=== PATIENT | male | born 1980 | race African-American/Black ===

== ENCOUNTER 2020-04-02 15:05 | Inpatient (IN) | payer OTHER ==
[2020-04-02] MEDS ORDERED: chlordiazePOXIDE HCL 25 MG CAPSULE PO SCH (23:00)
[2020-04-02] MEDS ORDERED: BISMUTH SUBSALICYLATE 524 MG/30 ML UD PO PRN (23:14)
[2020-04-02] MEDS ORDERED: MAGNESIUM CITRATE 300 ML BOTTLE PO PRN (23:14)
[2020-04-02] MEDS ORDERED: chlordiazePOXIDE HCL 25 MG CAPSULE PO PRN (23:14)
[2020-04-02] MEDS ORDERED: NICOTINE POLACRILEX 2 MG GUM BUC PRN (23:14)
[2020-04-02] MEDS ORDERED: MAGNESIUM HYDROX 2400MG/30ML ORAL SUSPENSION 30 ML CUP PO PRN (23:14)
[2020-04-02] MEDS ORDERED: METHOCARBAMOL 500 MG TABLET PO PRN (23:14)
[2020-04-02] MEDS ORDERED: MENTHOL/PHENOL 1 EACH UD MM PRN (23:14)
[2020-04-02] MEDS ORDERED: ACETAMINOPHEN 325 MG TABLET (FP) PO PRN (23:14)
[2020-04-02] MEDS ORDERED: MAG HYDROX/AL HYDROX/SIMETH 30 ML UNIT-DOSE CUP PO PRN (23:14)
[2020-04-02] MEDS ORDERED: IBUPROFEN 400 MG TABLET (FP) PO PRN (23:14)
[2020-04-02] MEDS ORDERED: cloNIDine HCL 0.1 MG TABLET PO PRN (23:19)
[2020-04-02] MEDS ORDERED: METHADONE HCL 10 MG TABLET (FOR DETOX USE ONLY) PO ONE (23:19)
[2020-04-03 00:01] VITALS: BMI 31.6
[2020-04-03] MEDS ORDERED: METHADONE HCL 10 MG TABLET (FOR DETOX USE ONLY) ONE ×2 (01:08→10:13)
[2020-04-03] MEDS ORDERED: ACETAMINOPHEN 325 MG TABLET (FP) ONE (01:09)
[2020-04-03] MEDS: ACETAMINOPHEN 325 MG TABLET (FP) PO PRN (01:12)
[2020-04-03] MEDS ORDERED: METHADONE (DETOX) 20 MG, METHADONE (DETOX) 5 MG PO ONE (10:00)
[2020-04-03] MEDS ORDERED: PATIENT'S OWN MEDICATION (NON-FORMULARY) (Lisinopril [Prinivil -] 40 MG Tablet) PO SCH (10:00)
[2020-04-03] MEDS ORDERED: METHADONE HCL 5 MG TABLET (FOR DETOX USE ONLY) ONE (10:14)
[2020-04-03] MEDS: NICOTINE POLACRILEX 2 MG GUM BUC PRN ×3 (10:25→16:41)
[2020-04-03] MEDS ORDERED: NICOTINE 21 MG/24 HOURS TOPICAL PATCH ONE (10:29)
[2020-04-03] MEDS: NICOTINE 21 MG/24 HOURS TOPICAL PATCH TD SCH (10:30)
[2020-04-03] MEDS: PRENATAL VITAMINS W/ FOLIC ACID TABLET (FP) PO SCH (10:56)
[2020-04-03 11:25] LABS: HEMATOCRIT 39.9 % (35.4-49); HEMOGLOBIN 13.7 GM/dL (11.7-16.9); MCH 31.1 pg (25.7-33.7); MCHC 34.2 g/dl (32.0-35.9); MEAN PLT VOLUME 8.8 fl (7.5-11.1); PLATELET COUNT 167 K/MM3 (134-434); RBC 4.39 M/mm3 (4.00-5.60); RDW 13.4 % (11.9-15.9); WHITE BLOOD COUNT 4.1 K/mm3 (4.0-10.0)
[2020-04-03 11:54] LABS: POTASSIUM 4.6 mmol/L (3.5-5.1)
[2020-04-03 12:00] LABS: ALBUMIN 3.7 g/dl (3.4-5.0); BLOOD UREA NITROGEN 19.4 mg/dL (7-18); CALCIUM 8.4 mg/dL (8.5-10.1)
[2020-04-03 12:03] LABS: CREATININE 0.9 mg/dL (0.55-1.3)
[2020-04-03 12:04] LABS: BILIRUBIN,TOTAL 0.6 mg/dL (0.2-1); TOT PROT 6.8 g/dl (6.4-8.2)
[2020-04-03] MEDS: amLODIPine BESYLATE 10 MG TABLET (FP) PO SCH (12:31)
[2020-04-03] MEDS: ONDANSETRON *ODT* 4 MG TABLET SL PRN (12:31)
[2020-04-03] MEDS ORDERED: LISINOPRIL 5 MG TABLET PO SCH (12:37)
[2020-04-03] MEDS: LISINOPRIL 5 MG TABLET PO SCH (12:50)
[2020-04-03] MEDS: metFORMIN HCL 500 MG TABLET (FP) PO SCH (17:09)
[2020-04-03] MEDS ORDERED: amLODIPine BESYLATE 5 MG TABLET (FP) PO SCH (22:00)
[2020-04-03] MEDS: MELATONIN 5 MG TABLETS PO SCH (22:54)
[2020-04-03] MEDS: THIAMINE HCL 100 MG TABLET (FP) PO SCH (22:55)
[2020-04-04] MEDS: NICOTINE POLACRILEX 2 MG GUM BUC PRN ×6 (01:47→22:22)
[2020-04-04] MEDS ORDERED: chlordiazePOXIDE HCL 25 MG CAPSULE PO SCH (05:00)
[2020-04-04] MEDS: metFORMIN HCL 500 MG TABLET (FP) PO SCH ×2 (06:23→17:07)
[2020-04-04] MEDS ORDERED: METHADONE HCL 10 MG TABLET (FOR DETOX USE ONLY) PO ONE (10:00)
[2020-04-04] MEDS: amLODIPine BESYLATE 10 MG TABLET (FP) PO SCH (10:47)
[2020-04-04] MEDS: NICOTINE 21 MG/24 HOURS TOPICAL PATCH TD SCH (10:47)
[2020-04-04] MEDS: PRENATAL VITAMINS W/ FOLIC ACID TABLET (FP) PO SCH (10:47)
[2020-04-04] MEDS: LISINOPRIL 5 MG TABLET PO SCH (10:47)
[2020-04-04] MEDS: THIAMINE HCL 100 MG TABLET (FP) PO SCH (21:19)
[2020-04-04] MEDS: MELATONIN 5 MG TABLETS PO SCH (21:19)
[2020-04-05] MEDS ORDERED: chlordiazePOXIDE HCL 10 MG CAPSULE PO PRN
[2020-04-05] MEDS ORDERED: chlordiazePOXIDE HCL 10 MG CAPSULE PO SCH (05:00)
[2020-04-05] MEDS: metFORMIN HCL 500 MG TABLET (FP) PO SCH ×2 (06:13→17:19)
[2020-04-05] MEDS ORDERED: METHADONE HCL 10 MG TABLET (FOR DETOX USE ONLY) ONE (09:24)
[2020-04-05] MEDS ORDERED: METHADONE HCL 5 MG TABLET (FOR DETOX USE ONLY) ONE (09:25)
[2020-04-05] MEDS: NICOTINE POLACRILEX 2 MG GUM BUC PRN ×3 (09:51→20:08)
[2020-04-05] MEDS: ONDANSETRON *ODT* 4 MG TABLET SL PRN (09:51)
[2020-04-05] MEDS ORDERED: METHADONE (DETOX) 10 MG, METHADONE (DETOX) 5 MG PO ONE (10:00)
[2020-04-05] MEDS: PRENATAL VITAMINS W/ FOLIC ACID TABLET (FP) PO SCH (10:08)
[2020-04-05] MEDS: amLODIPine BESYLATE 10 MG TABLET (FP) PO SCH (10:08)
[2020-04-05] MEDS: LISINOPRIL 5 MG TABLET PO SCH (10:08)
[2020-04-05] MEDS: NICOTINE 21 MG/24 HOURS TOPICAL PATCH TD SCH (10:09)
[2020-04-05] MEDS: ACETAMINOPHEN 325 MG TABLET (FP) PO PRN (14:21)
[2020-04-05] MEDS: MELATONIN 5 MG TABLETS PO SCH (22:57)
[2020-04-05] MEDS: THIAMINE HCL 100 MG TABLET (FP) PO SCH (22:58)
[2020-04-06] MEDS: NICOTINE POLACRILEX 2 MG GUM BUC PRN ×6 (00:16→20:32)
[2020-04-06] MEDS ORDERED: chlordiazePOXIDE HCL 10 MG CAPSULE PO SCH (05:00)
[2020-04-06] MEDS: metFORMIN HCL 500 MG TABLET (FP) PO SCH ×2 (08:19→18:01)
[2020-04-06] MEDS: PRENATAL VITAMINS W/ FOLIC ACID TABLET (FP) PO SCH (09:54)
[2020-04-06] MEDS: LISINOPRIL 5 MG TABLET PO SCH (09:54)
[2020-04-06] MEDS: NICOTINE 21 MG/24 HOURS TOPICAL PATCH TD SCH (09:55)
[2020-04-06] MEDS ORDERED: METHADONE HCL 10 MG TABLET (FOR DETOX USE ONLY) PO ONE (10:00)
[2020-04-06] MEDS: amLODIPine BESYLATE 10 MG TABLET (FP) PO SCH (12:17)
[2020-04-06] MEDS: THIAMINE HCL 100 MG TABLET (FP) PO SCH (23:11)
[2020-04-06] MEDS: MELATONIN 5 MG TABLETS PO SCH (23:11)
[2020-04-07] MEDS ORDERED: chlordiazePOXIDE HCL 10 MG CAPSULE PO ONE (05:00)
[2020-04-07] MEDS ORDERED: METHADONE HCL 5 MG TABLET (FOR DETOX USE ONLY) PO ONE (06:00)
[2020-04-07] MEDS: metFORMIN HCL 500 MG TABLET (FP) PO SCH (06:14)
[2020-04-07] MEDS: NICOTINE POLACRILEX 2 MG GUM BUC PRN (06:24)
[2020-04-07 07:18] VITALS: BP 124/76; PULSE 56; TEMP 97.3
[2020-04-07] MEDS: NICOTINE 21 MG/24 HOURS TOPICAL PATCH TD SCH (10:46)
[2020-04-07] MEDS: PRENATAL VITAMINS W/ FOLIC ACID TABLET (FP) PO SCH (10:46)
[2020-04-07] MEDS: amLODIPine BESYLATE 10 MG TABLET (FP) PO SCH (10:46)
[2020-04-07] MEDS: LISINOPRIL 5 MG TABLET PO SCH (10:46)
== END 2020-04-07 10:38 | disposition other institution (70) | DRG 773 ==
LOC: YASAS 15:05 → Y3N 04-03 11:48
PROVIDERS: ADMIT Allergy & Immunology; ATTEND Allergy & Immunology
PROC: HZ2ZZZZ Detoxification Services for Substance Abuse Treatment (ICD-10-PCS; principal; 2020-04-03)
DX: F11.23 Opioid dependence with withdrawal (principal); F10.20 Alcohol dependence, uncomplicated; F14.20 Cocaine dependence, uncomplicated; F17.210 Nicotine dependence, cigarettes, uncomplicated; F20.9 Schizophrenia, unspecified; F41.9 Anxiety disorder, unspecified; F32.9 Major depressive disorder, single episode, unspecified; I10 Essential (primary) hypertension; E11.65 Type 2 diabetes mellitus with hyperglycemia; Z79.84 Long term (current) use of oral hypoglycemic drugs; R79.89 Other specified abnormal findings of blood chemistry; Z88.0 Allergy status to penicillin; Z59.0 Homelessness
CPT/HCPCS: 36415; 80053; 82962; 85027; 86780; 93005; 93010; C9803; Q0162; U0003

== ENCOUNTER 2020-06-10 18:31 | Inpatient (IN) | payer OTHER ==
[2020-06-10 19:58] VITALS: BMI 32.3
[2020-06-10] MEDS ORDERED: MAG HYDROX/AL HYDROX/SIMETH 30 ML UNIT-DOSE CUP PO PRN (20:13)
[2020-06-10] MEDS ORDERED: BISMUTH SUBSALICYLATE 524 MG/30 ML UD PO PRN (20:13)
[2020-06-10] MEDS ORDERED: ONDANSETRON *ODT* 4 MG TABLET SL PRN (20:13)
[2020-06-10] MEDS ORDERED: ACETAMINOPHEN 325 MG TABLET (FP) PO PRN (20:13)
[2020-06-10] MEDS ORDERED: MAGNESIUM HYDROX 2400MG/30ML ORAL SUSPENSION 30 ML CUP PO PRN (20:13)
[2020-06-10] MEDS ORDERED: IBUPROFEN 400 MG TABLET (FP) PO PRN (20:13)
[2020-06-10] MEDS ORDERED: MENTHOL/PHENOL 1 EACH UD MM PRN (20:13)
[2020-06-10] MEDS ORDERED: MAGNESIUM CITRATE 300 ML BOTTLE PO PRN (20:13)
[2020-06-11] MEDS: THIAMINE HCL 100 MG TABLET (FP) PO SCH ×2 (01:22→22:43)
[2020-06-11] MEDS: MELATONIN 5 MG TABLETS PO SCH ×2 (01:22→22:43)
[2020-06-11] MEDS: diazePAM 5 MG TABLET PO SCH ×5 (01:23→22:44)
[2020-06-11] MEDS ORDERED: diazePAM 5 MG TABLET ONE (04:44)
[2020-06-11] MEDS: metFORMIN HCL 500 MG TABLET (FP) PO SCH ×2 (08:18→17:59)
[2020-06-11] MEDS ORDERED: LISINOPRIL 5 MG TABLET PO SCH (10:00)
[2020-06-11 10:20] LABS: HEMATOCRIT 38.1 % (35.4-49); HEMOGLOBIN 13.3 GM/dL (11.7-16.9); MCHC 34.8 g/dl (32.0-35.9); MEAN CELL VOLUME 89.1 fl (80-96); MEAN PLT VOLUME 8.7 fl (7.5-11.1); PLATELET COUNT 184 K/MM3 (134-434); RBC 4.28 M/mm3 (4.00-5.60); RDW 13.4 % (11.9-15.9); WHITE BLOOD COUNT 3.5 K/mm3 (4.0-10.0)
[2020-06-11 10:32] LABS: ALBUMIN 3.4 g/dl (3.4-5.0); CALCIUM 8.7 mg/dL (8.5-10.1)
[2020-06-11 10:33] LABS: BLOOD UREA NITROGEN 15.6 mg/dL (7-18)
[2020-06-11 10:36] LABS: CREATININE 0.9 mg/dL (0.55-1.3)
[2020-06-11 10:37] LABS: BILIRUBIN,TOTAL 0.7 mg/dL (0.2-1); TOT PROT 6.5 g/dl (6.4-8.2)
[2020-06-11] MEDS: LISINOPRIL 5 MG TABLET PO SCH (11:37)
[2020-06-11] MEDS: amLODIPine BESYLATE 5 MG TABLET (FP) PO SCH (11:37)
[2020-06-11] MEDS: NICOTINE POLACRILEX 4 MG GUM BUC PRN ×4 (11:40→20:47)
[2020-06-11] MEDS: PRENATAL VITAMINS W/ FOLIC ACID TABLET (FP) PO SCH (11:40)
[2020-06-11] MEDS: ASPIRIN COATED 81 MG TABLET.EC PO SCH (13:48)
[2020-06-11] MEDS: PANTOPRAZOLE 20 MG TABLET PO SCH (13:48)
[2020-06-11 22:19] LABS: URINE APPEARANCE CLEAR; URINE BILIRUBIN NEGATIVE (NEGATIVE); URINE COLOR YELLOW; URINE GLUCOSE (UA) 2+ (NEGATIVE); URINE KETONE TRACE (NEGATIVE); URINE LEUK ESTERASE NEGATIVE (NEGATIVE); URINE NITRITE NEGATIVE (NEGATIVE); URINE PROTEIN NEGATIVE (NEGATIVE)
[2020-06-12] MEDS: diazePAM 5 MG TABLET PO SCH ×3 (06:14→23:24)
[2020-06-12] MEDS: metFORMIN HCL 500 MG TABLET (FP) PO SCH ×2 (06:16→16:47)
[2020-06-12] MEDS: NICOTINE POLACRILEX 4 MG GUM BUC PRN ×4 (08:52→21:27)
[2020-06-12] MEDS: PANTOPRAZOLE 20 MG TABLET PO SCH (10:38)
[2020-06-12] MEDS: ASPIRIN COATED 81 MG TABLET.EC PO SCH (10:38)
[2020-06-12] MEDS: hydrOXYzine PAMOATE 25 MG CAPSULE (FP) PO PRN ×2 (10:38→17:54)
[2020-06-12] MEDS: amLODIPine BESYLATE 5 MG TABLET (FP) PO SCH (10:38)
[2020-06-12] MEDS: LISINOPRIL 5 MG TABLET PO SCH (10:38)
[2020-06-12] MEDS: ACETAMINOPHEN 325 MG TABLET (FP) PO PRN (10:39)
[2020-06-12] MEDS: METHOCARBAMOL 500 MG TABLET PO PRN (10:39)
[2020-06-12] MEDS: PRENATAL VITAMINS W/ FOLIC ACID TABLET (FP) PO SCH (10:39)
[2020-06-12] MEDS: ARIPiprazole 2 MG TABLET PO SCH (10:39)
[2020-06-12] MEDS: diazePAM 5 MG TABLET PO PRN ×2 (10:40→17:55)
[2020-06-12] MEDS: MELATONIN 5 MG TABLETS PO SCH (23:23)
[2020-06-12] MEDS: THIAMINE HCL 100 MG TABLET (FP) PO SCH (23:24)
[2020-06-13] MEDS: diazePAM 5 MG TABLET PO SCH ×2 (05:45→17:05)
[2020-06-13] MEDS: METHOCARBAMOL 500 MG TABLET PO PRN ×2 (05:48→22:40)
[2020-06-13] MEDS: NICOTINE POLACRILEX 4 MG GUM BUC PRN ×5 (05:50→21:03)
[2020-06-13] MEDS: metFORMIN HCL 500 MG TABLET (FP) PO SCH ×2 (07:48→17:01)
[2020-06-13] MEDS: LISINOPRIL 5 MG TABLET PO SCH (10:08)
[2020-06-13] MEDS: PANTOPRAZOLE 20 MG TABLET PO SCH (10:08)
[2020-06-13] MEDS: ASPIRIN COATED 81 MG TABLET.EC PO SCH (10:08)
[2020-06-13] MEDS: ARIPiprazole 2 MG TABLET PO SCH (10:08)
[2020-06-13] MEDS: amLODIPine BESYLATE 5 MG TABLET (FP) PO SCH (10:08)
[2020-06-13] MEDS: diazePAM 5 MG TABLET PO PRN (10:09)
[2020-06-13] MEDS ORDERED: COLLOIDAL OATMEAL 1 BAR EACH TP PRN (10:39)
[2020-06-13] MEDS: PRENATAL VITAMINS W/ FOLIC ACID TABLET (FP) PO SCH (11:52)
[2020-06-13 14:11] LABS: SARS-CoV-2 NAA Not Detected (Not Detected)
[2020-06-13] MEDS: NICOTINE 21 MG/24 HOURS TOPICAL PATCH TD SCH (14:59)
[2020-06-13] MEDS: ACETAMINOPHEN 325 MG TABLET (FP) PO PRN (15:29)
[2020-06-13] MEDS: THIAMINE HCL 100 MG TABLET (FP) PO SCH (22:39)
[2020-06-13] MEDS: MELATONIN 5 MG TABLETS PO SCH (22:39)
[2020-06-13] MEDS: hydrOXYzine PAMOATE 25 MG CAPSULE (FP) PO PRN (22:40)
[2020-06-14] MEDS ORDERED: diazePAM 5 MG TABLET PO ONE (06:00)
[2020-06-14] MEDS ORDERED: diazePAM 5 MG TABLET PO SCH (06:00)
[2020-06-14] MEDS: metFORMIN HCL 500 MG TABLET (FP) PO SCH ×2 (06:33→17:01)
[2020-06-14] MEDS: diazePAM 5 MG TABLET PO SCH ×2 (06:33→17:51)
[2020-06-14] MEDS: PRENATAL VITAMINS W/ FOLIC ACID TABLET (FP) PO SCH (10:28)
[2020-06-14] MEDS: NICOTINE 21 MG/24 HOURS TOPICAL PATCH TD SCH (10:28)
[2020-06-14] MEDS: LISINOPRIL 5 MG TABLET PO SCH (10:28)
[2020-06-14] MEDS: ASPIRIN COATED 81 MG TABLET.EC PO SCH (10:28)
[2020-06-14] MEDS: PANTOPRAZOLE 20 MG TABLET PO SCH (10:28)
[2020-06-14] MEDS: amLODIPine BESYLATE 10 MG TABLET (FP) PO SCH (10:28)
[2020-06-14] MEDS: ARIPiprazole 2 MG TABLET PO SCH (10:30)
[2020-06-14] MEDS: NICOTINE POLACRILEX 4 MG GUM BUC PRN ×2 (10:32→15:43)
[2020-06-14] MEDS: METHOCARBAMOL 500 MG TABLET PO PRN (17:52)
[2020-06-14] MEDS: MELATONIN 5 MG TABLETS PO SCH (22:18)
[2020-06-14] MEDS: THIAMINE HCL 100 MG TABLET (FP) PO SCH (22:18)
[2020-06-14] MEDS: ACETAMINOPHEN 325 MG TABLET (FP) PO PRN (22:19)
[2020-06-15] MEDS: METHOCARBAMOL 500 MG TABLET PO PRN (05:41)
[2020-06-15] MEDS ORDERED: diazePAM 5 MG TABLET PO ONE (06:00)
[2020-06-15] MEDS: metFORMIN HCL 500 MG TABLET (FP) PO SCH (06:02)
[2020-06-15] MEDS: NICOTINE POLACRILEX 4 MG GUM BUC PRN ×3 (07:49→13:42)
[2020-06-15] MEDS: PRENATAL VITAMINS W/ FOLIC ACID TABLET (FP) PO SCH (10:19)
[2020-06-15] MEDS: PANTOPRAZOLE 20 MG TABLET PO SCH (10:20)
[2020-06-15] MEDS: NICOTINE 21 MG/24 HOURS TOPICAL PATCH TD SCH (10:20)
[2020-06-15] MEDS: LISINOPRIL 5 MG TABLET PO SCH (10:20)
[2020-06-15] MEDS: ASPIRIN COATED 81 MG TABLET.EC PO SCH (10:20)
[2020-06-15] MEDS: ARIPiprazole 2 MG TABLET PO SCH (10:21)
[2020-06-15] MEDS: amLODIPine BESYLATE 10 MG TABLET (FP) PO SCH (10:21)
[2020-06-15 12:58] VITALS: BP 106/56; PULSE 86; TEMP 97.3
== END 2020-06-15 14:00 | disposition other institution (70) | DRG 774 ==
LOC: YASAS 18:31 → Y3N 06-11 09:02
PROVIDERS: ADMIT Allergy & Immunology; ATTEND Allergy & Immunology
PROC: HZ2ZZZZ Detoxification Services for Substance Abuse Treatment (ICD-10-PCS; principal; 2020-06-11)
DX: F10.230 Alcohol dependence with withdrawal, uncomplicated (principal); F14.20 Cocaine dependence, uncomplicated; F17.210 Nicotine dependence, cigarettes, uncomplicated; F25.9 Schizoaffective disorder, unspecified; F41.1 Generalized anxiety disorder; F32.9 Major depressive disorder, single episode, unspecified; E11.9 Type 2 diabetes mellitus without complications; Z79.84 Long term (current) use of oral hypoglycemic drugs; I10 Essential (primary) hypertension; K21.9 Gastro-esophageal reflux disease without esophagitis; Z88.0 Allergy status to penicillin
CPT/HCPCS: 36415; 80053; 81003; 82962; 85027; 86780; C9803; Q0162; U0003; U0005

== ENCOUNTER 2020-06-15 14:10 | Inpatient (IN) | payer OTHER ==
[2020-06-15] MEDS ORDERED: MAG HYDROX/AL HYDROX/SIMETH 30 ML UNIT-DOSE CUP PO PRN (14:57)
[2020-06-15] MEDS ORDERED: guaiFENesin 200 MG/10 ML 10 ML UNIT-DOSE CUPS PO PRN (14:57)
[2020-06-15] MEDS ORDERED: P-EPHED 60MG/TRIPROLIDI 2.5MG TABLET PO PRN (14:57)
[2020-06-15] MEDS ORDERED: LOPERAMIDE HCL 2 MG CAPSULE PO PRN (14:57)
[2020-06-15] MEDS ORDERED: IBUPROFEN 400 MG TABLET (FP) PO PRN (14:57)
[2020-06-15] MEDS ORDERED: MAGNESIUM HYDROX 2400MG/30ML ORAL SUSPENSION 30 ML CUP PO PRN (14:57)
[2020-06-15] MEDS ORDERED: MAGNESIUM CITRATE 300 ML BOTTLE PO PRN (14:57)
[2020-06-15] MEDS ORDERED: NICOTINE POLACRILEX 2 MG GUM BUC PRN (14:57)
[2020-06-15] MEDS ORDERED: MENTHOL/PHENOL 1 EACH UD MM PRN (14:57)
[2020-06-15] MEDS: metFORMIN HCL 500 MG TABLET (FP) PO SCH (16:41)
[2020-06-15] MEDS: NICOTINE POLACRILEX 2 MG GUM BUC PRN ×3 (17:27→22:06)
[2020-06-15] MEDS: THIAMINE HCL 100 MG TABLET (FP) PO SCH (21:31)
[2020-06-15] MEDS: ACETAMINOPHEN 325 MG TABLET (FP) PO PRN (21:31)
[2020-06-15] MEDS: hydrOXYzine PAMOATE 25 MG CAPSULE (FP) PO PRN (21:31)
[2020-06-15] MEDS: MELATONIN 5 MG TABLETS PO SCH (21:31)
[2020-06-15] MEDS ORDERED: risperiDONE 1 MG TABLET PO SCH (22:00)
[2020-06-16] MEDS: metFORMIN HCL 500 MG TABLET (FP) PO SCH ×2 (06:34→16:44)
[2020-06-16 06:51] VITALS: TEMP 97.3
[2020-06-16] MEDS: NICOTINE POLACRILEX 2 MG GUM BUC PRN ×6 (06:51→21:42)
[2020-06-16] MEDS ORDERED: NICOTINE 14 MG/24 HOURS TOPICAL PATCH TD SCH (10:00)
[2020-06-16] MEDS: PRENATAL VITAMINS W/ FOLIC ACID TABLET (FP) PO SCH (10:07)
[2020-06-16] MEDS: amLODIPine BESYLATE 5 MG TABLET (FP) PO SCH (10:08)
[2020-06-16] MEDS: ASPIRIN COATED 81 MG TABLET.EC PO SCH (10:08)
[2020-06-16] MEDS: PANTOPRAZOLE 20 MG TABLET PO SCH (10:08)
[2020-06-16] MEDS: hydrOXYzine PAMOATE 25 MG CAPSULE (FP) PO PRN ×2 (10:12→18:40)
[2020-06-16] MEDS ORDERED: COLLOIDAL OATMEAL 1 BAR EACH TP PRN (10:47)
[2020-06-16] MEDS: ARIPiprazole 2 MG TABLET PO SCH (11:36)
[2020-06-16] MEDS: LISINOPRIL 5 MG TABLET PO SCH (11:36)
[2020-06-16] MEDS: NICOTINE 21 MG/24 HOURS TOPICAL PATCH TD SCH (13:23)
[2020-06-16] MEDS: THIAMINE HCL 100 MG TABLET (FP) PO SCH (21:42)
[2020-06-16] MEDS: MELATONIN 5 MG TABLETS PO SCH (21:42)
[2020-06-17] MEDS: metFORMIN HCL 500 MG TABLET (FP) PO SCH ×2 (06:29→16:23)
[2020-06-17] MEDS: NICOTINE POLACRILEX 2 MG GUM BUC PRN ×4 (06:30→21:37)
[2020-06-17] MEDS: ASPIRIN COATED 81 MG TABLET.EC PO SCH (10:28)
[2020-06-17] MEDS: amLODIPine BESYLATE 5 MG TABLET (FP) PO SCH (10:28)
[2020-06-17] MEDS: PRENATAL VITAMINS W/ FOLIC ACID TABLET (FP) PO SCH (10:28)
[2020-06-17] MEDS: PANTOPRAZOLE 20 MG TABLET PO SCH (10:28)
[2020-06-17] MEDS: LISINOPRIL 5 MG TABLET PO SCH (10:29)
[2020-06-17] MEDS: ARIPiprazole 2 MG TABLET PO SCH (10:29)
[2020-06-17] MEDS: NICOTINE 21 MG/24 HOURS TOPICAL PATCH TD SCH (10:30)
[2020-06-17] MEDS: MELATONIN 5 MG TABLETS PO SCH (21:36)
[2020-06-17] MEDS: THIAMINE HCL 100 MG TABLET (FP) PO SCH (21:36)
[2020-06-18] MEDS: metFORMIN HCL 500 MG TABLET (FP) PO SCH (06:13)
[2020-06-18] MEDS: ACETAMINOPHEN 325 MG TABLET (FP) PO PRN (06:14)
[2020-06-18] MEDS: NICOTINE POLACRILEX 2 MG GUM BUC PRN ×2 (06:22→09:18)
[2020-06-18] MEDS ORDERED: PT OWN MED DRAWER 7, Y5N ONE (09:13)
[2020-06-18] MEDS: LISINOPRIL 5 MG TABLET PO SCH (09:15)
[2020-06-18] MEDS: amLODIPine BESYLATE 5 MG TABLET (FP) PO SCH (09:15)
[2020-06-18] MEDS: PANTOPRAZOLE 20 MG TABLET PO SCH (09:15)
[2020-06-18] MEDS: ASPIRIN COATED 81 MG TABLET.EC PO SCH (09:15)
[2020-06-18] MEDS: ARIPiprazole 2 MG TABLET PO SCH (09:16)
[2020-06-18] MEDS: NICOTINE 21 MG/24 HOURS TOPICAL PATCH TD SCH (09:17)
[2020-06-18] MEDS: PRENATAL VITAMINS W/ FOLIC ACID TABLET (FP) PO SCH (09:17)
[2020-06-18 10:16] VITALS: BP 126/85; PULSE 69
== END 2020-06-18 09:43 | disposition home or self-care (01) | DRG 772 ==
LOC: YASAS 14:10 → Y5N 14:11
PROVIDERS: ADMIT Allergy & Immunology; ATTEND Allergy & Immunology
PROC: HZ42ZZZ Group Counseling for Substance Abuse Treatment, Cognitive-Behavioral (ICD-10-PCS; principal; 2020-06-15)
DX: F10.20 Alcohol dependence, uncomplicated (principal); F14.20 Cocaine dependence, uncomplicated; F17.210 Nicotine dependence, cigarettes, uncomplicated; F20.9 Schizophrenia, unspecified; F32.9 Major depressive disorder, single episode, unspecified; F41.9 Anxiety disorder, unspecified; I10 Essential (primary) hypertension; E11.9 Type 2 diabetes mellitus without complications; Z79.4 Long term (current) use of insulin; K21.9 Gastro-esophageal reflux disease without esophagitis; Z88.0 Allergy status to penicillin
CPT/HCPCS: 82962

== ENCOUNTER 2021-02-01 10:44 | Inpatient (IN) | payer OTHER ==
[2021-02-01] MEDS ORDERED: chlordiazePOXIDE HCL 25 MG CAPSULE PO PRN (12:22)
[2021-02-01] MEDS ORDERED: IBUPROFEN 400 MG TABLET (FP) PO PRN (12:22)
[2021-02-01] MEDS ORDERED: ACETAMINOPHEN 325 MG TABLET (FP) PO PRN (12:22)
[2021-02-01] MEDS ORDERED: MENTHOL/PHENOL 1 EACH UD MM PRN (12:22)
[2021-02-01] MEDS ORDERED: MAGNESIUM CITRATE 300 ML BOTTLE PO PRN (12:22)
[2021-02-01] MEDS ORDERED: cloNIDine HCL 0.1 MG TABLET PO PRN (12:22)
[2021-02-01] MEDS ORDERED: BISMUTH SUBSALICYLATE 262 MG/15 ML BTL PO PRN (12:22)
[2021-02-01] MEDS ORDERED: methaDONE HCL 10 MG TABLET (FOR DETOX USE ONLY) PO ONE (12:22)
[2021-02-01] MEDS ORDERED: MAG HYDROX/AL HYDROX/SIMETH 30 ML UNIT-DOSE CUP PO PRN (12:22)
[2021-02-01] MEDS ORDERED: ONDANSETRON *ODT* 4 MG TABLET SL PRN (12:22)
[2021-02-01] MEDS ORDERED: MAGNESIUM HYDROX 2400MG/30ML ORAL SUSPENSION 30 ML CUP PO PRN (12:22)
[2021-02-01 12:40] VITALS: BMI 35.6
[2021-02-01] MEDS: hydrOXYzine PAMOATE 25 MG CAPSULE (FP) PO SCH ×3 (13:20→22:22)
[2021-02-01] MEDS: NICOTINE 10 MG CARTRIDGE (INHALER) IH PRN (13:24)
[2021-02-01] MEDS: metFORMIN HCL 500 MG TABLET (FP) PO SCH ×2 (15:15→17:43)
[2021-02-01] MEDS: chlordiazePOXIDE HCL 25 MG CAPSULE PO SCH ×2 (17:43→22:27)
[2021-02-01] MEDS: THIAMINE HCL 100 MG TABLET (FP) PO SCH (22:22)
[2021-02-01] MEDS: MELATONIN 5 MG TABLETS PO SCH (22:22)
[2021-02-02] MEDS: hydrOXYzine PAMOATE 25 MG CAPSULE (FP) PO SCH ×5 (05:32→22:32)
[2021-02-02] MEDS: chlordiazePOXIDE HCL 25 MG CAPSULE PO SCH ×4 (05:34→22:34)
[2021-02-02] MEDS: metFORMIN HCL 500 MG TABLET (FP) PO SCH ×2 (06:56→16:28)
[2021-02-02] MEDS ORDERED: methaDONE HCL 10 MG TABLET (FOR DETOX USE ONLY) ONE (09:35)
[2021-02-02] MEDS: PRENATAL VITAMINS W/ FOLIC ACID TABLET (FP) PO SCH (10:05)
[2021-02-02] MEDS: amLODIPine BESYLATE 5 MG TABLET (FP) PO SCH (10:07)
[2021-02-02] MEDS: METHOCARBAMOL 500 MG TABLET PO PRN ×2 (10:07→20:21)
[2021-02-02] MEDS: ARIPiprazole 5 MG TABLET PO SCH (10:07)
[2021-02-02] MEDS: NICOTINE 10 MG CARTRIDGE (INHALER) IH PRN ×2 (10:11→19:43)
[2021-02-02 10:14] LABS: ALBUMIN 3.2 g/dl (3.4-5.0); BLOOD UREA NITROGEN 13.4 mg/dL (7-18); CALCIUM 8.5 mg/dL (8.5-10.1)
[2021-02-02 10:17] LABS: CREATININE 0.9 mg/dL (0.55-1.3)
[2021-02-02 10:19] LABS: BILIRUBIN,TOTAL 0.5 mg/dL (0.2-1); TOT PROT 6.7 g/dl (6.4-8.2)
[2021-02-02 10:40] LABS: HEMATOCRIT 38.1 % (35.4-49); HEMOGLOBIN 12.9 GM/dL (11.7-16.9); MCH 29.4 pg (25.7-33.7); MEAN CELL VOLUME 86.4 fl (80-96); MEAN PLT VOLUME 9.3 fl (7.5-11.1); PLATELET COUNT 212 10^3/uL (134-434); RBC 4.41 M/mm3 (4.00-5.60); RDW 13.5 % (11.9-15.9); WHITE BLOOD COUNT 5.5 K/mm3 (4.0-10.0)
[2021-02-02] MEDS: ASPIRIN COATED 81 MG TABLET.EC PO SCH (13:46)
[2021-02-02] MEDS: LISINOPRIL 5 MG TABLET PO SCH (13:46)
[2021-02-02] MEDS: MELATONIN 5 MG TABLETS PO SCH (22:32)
[2021-02-02] MEDS: THIAMINE HCL 100 MG TABLET (FP) PO SCH (22:33)
[2021-02-03] MEDS: hydrOXYzine PAMOATE 25 MG CAPSULE (FP) PO SCH ×5 (06:10→22:38)
[2021-02-03] MEDS: chlordiazePOXIDE HCL 25 MG CAPSULE PO SCH ×4 (06:10→22:38)
[2021-02-03] MEDS: metFORMIN HCL 500 MG TABLET (FP) PO SCH ×2 (06:14→17:24)
[2021-02-03] MEDS: NICOTINE 10 MG CARTRIDGE (INHALER) IH PRN ×3 (06:14→22:43)
[2021-02-03] MEDS ORDERED: methaDONE HCL 10 MG TABLET (FOR DETOX USE ONLY) PO ONE (10:00)
[2021-02-03] MEDS: METHOCARBAMOL 500 MG TABLET PO PRN (10:05)
[2021-02-03] MEDS: PRENATAL VITAMINS W/ FOLIC ACID TABLET (FP) PO SCH (10:05)
[2021-02-03] MEDS: LISINOPRIL 5 MG TABLET PO SCH (10:05)
[2021-02-03] MEDS: amLODIPine BESYLATE 5 MG TABLET (FP) PO SCH (10:05)
[2021-02-03] MEDS: ASPIRIN COATED 81 MG TABLET.EC PO SCH (10:05)
[2021-02-03] MEDS: ARIPiprazole 5 MG TABLET PO SCH (10:06)
[2021-02-03] MEDS: NICOTINE 21 MG/24 HOURS TOPICAL PATCH TD SCH (12:35)
[2021-02-03] MEDS: MELATONIN 5 MG TABLETS PO SCH (22:37)
[2021-02-03] MEDS: THIAMINE HCL 100 MG TABLET (FP) PO SCH (22:38)
[2021-02-04] MEDS ORDERED: chlordiazePOXIDE HCL 10 MG CAPSULE PO PRN
[2021-02-04] MEDS: chlordiazePOXIDE HCL 10 MG CAPSULE PO SCH ×4 (06:04→22:38)
[2021-02-04] MEDS: hydrOXYzine PAMOATE 25 MG CAPSULE (FP) PO SCH ×5 (06:04→22:38)
[2021-02-04] MEDS: metFORMIN HCL 500 MG TABLET (FP) PO SCH ×2 (06:04→17:22)
[2021-02-04] MEDS: NICOTINE 10 MG CARTRIDGE (INHALER) IH PRN ×2 (06:06→10:32)
[2021-02-04] MEDS ORDERED: methaDONE HCL 10 MG TABLET (FOR DETOX USE ONLY) ONE (09:41)
[2021-02-04] MEDS: ASPIRIN COATED 81 MG TABLET.EC PO SCH (10:28)
[2021-02-04] MEDS: LISINOPRIL 5 MG TABLET PO SCH (10:28)
[2021-02-04] MEDS: amLODIPine BESYLATE 5 MG TABLET (FP) PO SCH (10:29)
[2021-02-04] MEDS: ARIPiprazole 5 MG TABLET PO SCH (10:30)
[2021-02-04] MEDS: PRENATAL VITAMINS W/ FOLIC ACID TABLET (FP) PO SCH (10:30)
[2021-02-04] MEDS: NICOTINE 21 MG/24 HOURS TOPICAL PATCH TD SCH (10:32)
[2021-02-04] MEDS: METHOCARBAMOL 500 MG TABLET PO PRN ×2 (10:37→22:38)
[2021-02-04] MEDS: NICOTINE POLACRILEX 4 MG GUM BUC PRN ×3 (13:28→22:40)
[2021-02-04] MEDS: THIAMINE HCL 100 MG TABLET (FP) PO SCH (22:37)
[2021-02-04] MEDS: MELATONIN 5 MG TABLETS PO SCH (22:38)
[2021-02-05] MEDS: hydrOXYzine PAMOATE 25 MG CAPSULE (FP) PO SCH ×5 (05:55→22:06)
[2021-02-05] MEDS: chlordiazePOXIDE HCL 10 MG CAPSULE PO SCH ×2 (05:55→16:49)
[2021-02-05] MEDS: METHOCARBAMOL 500 MG TABLET PO PRN ×4 (05:58→22:08)
[2021-02-05] MEDS: NICOTINE POLACRILEX 4 MG GUM BUC PRN ×6 (05:58→22:09)
[2021-02-05] MEDS: metFORMIN HCL 500 MG TABLET (FP) PO SCH ×2 (06:34→16:48)
[2021-02-05] MEDS: LISINOPRIL 5 MG TABLET PO SCH (09:45)
[2021-02-05] MEDS: PRENATAL VITAMINS W/ FOLIC ACID TABLET (FP) PO SCH (09:45)
[2021-02-05] MEDS: ARIPiprazole 5 MG TABLET PO SCH (09:46)
[2021-02-05] MEDS: amLODIPine BESYLATE 5 MG TABLET (FP) PO SCH (09:46)
[2021-02-05] MEDS: ASPIRIN COATED 81 MG TABLET.EC PO SCH (09:46)
[2021-02-05] MEDS: ACETAMINOPHEN 325 MG TABLET (FP) PO PRN (09:48)
[2021-02-05] MEDS: NICOTINE 21 MG/24 HOURS TOPICAL PATCH TD SCH (09:49)
[2021-02-05] MEDS ORDERED: methaDONE HCL 10 MG TABLET (FOR DETOX USE ONLY) PO ONE (10:00)
[2021-02-05] MEDS: NICOTINE 10 MG CARTRIDGE (INHALER) IH PRN ×2 (19:04→22:10)
[2021-02-05] MEDS: MELATONIN 5 MG TABLETS PO SCH (22:05)
[2021-02-05] MEDS: THIAMINE HCL 100 MG TABLET (FP) PO SCH (22:06)
[2021-02-06] MEDS ORDERED: chlordiazePOXIDE HCL 10 MG CAPSULE PO ONE (05:00)
[2021-02-06] MEDS: hydrOXYzine PAMOATE 25 MG CAPSULE (FP) PO SCH ×2 (05:50→09:20)
[2021-02-06] MEDS: NICOTINE 10 MG CARTRIDGE (INHALER) IH PRN ×2 (05:50→09:04)
[2021-02-06] MEDS: metFORMIN HCL 500 MG TABLET (FP) PO SCH (06:11)
[2021-02-06 09:03] VITALS: BP 115/77; PULSE 81; TEMP 97.4
[2021-02-06] MEDS: PRENATAL VITAMINS W/ FOLIC ACID TABLET (FP) PO SCH (09:18)
[2021-02-06] MEDS: amLODIPine BESYLATE 5 MG TABLET (FP) PO SCH (09:19)
[2021-02-06] MEDS: ARIPiprazole 5 MG TABLET PO SCH (09:19)
[2021-02-06] MEDS: ASPIRIN COATED 81 MG TABLET.EC PO SCH (09:19)
[2021-02-06] MEDS: LISINOPRIL 5 MG TABLET PO SCH (09:20)
[2021-02-06] MEDS: METHOCARBAMOL 500 MG TABLET PO PRN (09:20)
[2021-02-06] MEDS: NICOTINE POLACRILEX 4 MG GUM BUC PRN (09:20)
[2021-02-06] MEDS: ACETAMINOPHEN 325 MG TABLET (FP) PO PRN (09:21)
== END 2021-02-06 11:09 | disposition other institution (70) | DRG 773 ==
LOC: YASAS 10:44 → Y6N 12:50
PROVIDERS: ADMIT Allergy & Immunology; ATTEND Allergy & Immunology
PROC: HZ2ZZZZ Detoxification Services for Substance Abuse Treatment (ICD-10-PCS; principal; 2021-02-01)
DX: F11.23 Opioid dependence with withdrawal (principal); F10.230 Alcohol dependence with withdrawal, uncomplicated; F14.20 Cocaine dependence, uncomplicated; F17.210 Nicotine dependence, cigarettes, uncomplicated; F19.24 Other psychoactive substance dependence with psychoactive substance-induced mood disorder; F20.9 Schizophrenia, unspecified; F41.8 Other specified anxiety disorders; F32.A Depression, unspecified; I10 Essential (primary) hypertension; E11.9 Type 2 diabetes mellitus without complications; Z79.84 Long term (current) use of oral hypoglycemic drugs; E66.9 Obesity, unspecified; Z68.35 Body mass index [BMI] 35.0-35.9, adult; Z59.01 Sheltered homelessness; Z56.0 Unemployment, unspecified
CPT/HCPCS: 36415; 80053; 82962; 85027; 86780; C9803; J0735; U0003; U0005

== ENCOUNTER 2021-02-06 11:33 | Inpatient (IN) | payer OTHER ==
[2021-02-06] MEDS ORDERED: P-EPHED 60MG/TRIPROLIDI 2.5MG TABLET PO PRN (12:22)
[2021-02-06] MEDS ORDERED: LOPERAMIDE HCL 2 MG CAPSULE PO PRN (12:22)
[2021-02-06] MEDS ORDERED: ACETAMINOPHEN 325 MG TABLET (FP) PO PRN (12:22)
[2021-02-06] MEDS ORDERED: IBUPROFEN 400 MG TABLET (FP) PO PRN (12:22)
[2021-02-06] MEDS ORDERED: MAGNESIUM HYDROX 2400MG/30ML ORAL SUSPENSION 30 ML CUP PO PRN (12:22)
[2021-02-06] MEDS ORDERED: MAGNESIUM CITRATE 300 ML BOTTLE PO PRN (12:22)
[2021-02-06] MEDS ORDERED: MAG HYDROX/AL HYDROX/SIMETH 30 ML UNIT-DOSE CUP PO PRN (12:22)
[2021-02-06] MEDS ORDERED: guaiFENesin 200 MG/10 ML 10 ML UNIT-DOSE CUPS PO PRN (12:22)
[2021-02-06] MEDS: NICOTINE 10 MG CARTRIDGE (INHALER) IH PRN ×3 (13:47→21:04)
[2021-02-06] MEDS: NICOTINE POLACRILEX 4 MG GUM BUC PRN ×2 (13:47→21:05)
[2021-02-06] MEDS: hydrOXYzine PAMOATE 25 MG CAPSULE (FP) PO SCH ×3 (13:49→21:03)
[2021-02-06] MEDS: metFORMIN HCL 500 MG TABLET (FP) PO SCH (17:03)
[2021-02-06] MEDS ORDERED: MELATONIN 5 MG TABLETS PO SCH (22:00)
[2021-02-06] MEDS ORDERED: THIAMINE HCL 100 MG TABLET (FP) PO SCH (22:00)
[2021-02-07] MEDS: metFORMIN HCL 500 MG TABLET (FP) PO SCH (06:24)
[2021-02-07] MEDS: hydrOXYzine PAMOATE 25 MG CAPSULE (FP) PO SCH (06:24)
[2021-02-07] MEDS: NICOTINE 10 MG CARTRIDGE (INHALER) IH PRN (06:26)
[2021-02-07 09:01] VITALS: BP 127/89; PULSE 86; TEMP 98.2
[2021-02-07] MEDS ORDERED: ARIPiprazole 5 MG TABLET PO SCH (10:00)
[2021-02-07] MEDS ORDERED: ASPIRIN COATED 81 MG TABLET.EC PO SCH (10:00)
[2021-02-07] MEDS ORDERED: NICOTINE 7 MG/24 HOURS TOPICAL PATCH TD SCH (10:00)
[2021-02-07] MEDS ORDERED: amLODIPine BESYLATE 10 MG TABLET (FP) PO SCH (10:00)
[2021-02-07] MEDS ORDERED: LISINOPRIL 5 MG TABLET PO SCH (10:00)
[2021-02-07] MEDS ORDERED: PRENATAL VITAMINS W/ FOLIC ACID TABLET (FP) PO SCH (10:00)
== END 2021-02-07 09:30 | disposition left against medical advice (07) | DRG 770 ==
LOC: YASAS 11:33 → Y3W 11:34
PROVIDERS: ADMIT Allergy & Immunology; ATTEND Allergy & Immunology
PROC: HZ42ZZZ Group Counseling for Substance Abuse Treatment, Cognitive-Behavioral (ICD-10-PCS; principal; 2021-02-06)
DX: F11.20 Opioid dependence, uncomplicated (principal); F10.20 Alcohol dependence, uncomplicated; F14.20 Cocaine dependence, uncomplicated; F17.210 Nicotine dependence, cigarettes, uncomplicated; F19.24 Other psychoactive substance dependence with psychoactive substance-induced mood disorder; F32.A Depression, unspecified; F41.9 Anxiety disorder, unspecified; I10 Essential (primary) hypertension; E11.9 Type 2 diabetes mellitus without complications; Z79.84 Long term (current) use of oral hypoglycemic drugs; Z86.59 Personal history of other mental and behavioral disorders; Z88.0 Allergy status to penicillin
CPT/HCPCS: 82962

== ENCOUNTER 2022-06-21 14:10 | Inpatient (IN) | payer OTHER ==
[2022-06-21 14:51] VITALS: BMI 30.4
[2022-06-21] MEDS ORDERED: IBUPROFEN 600 MG TABLET (FP) PO PRN (18:08)
[2022-06-21] MEDS ORDERED: POLYETHYLENE GLYCOL (HEALTHYLAX) 3350 17 GM PACKET PO PRN (18:08)
[2022-06-21] MEDS ORDERED: diazePAM 5 MG TABLET PO PRN (18:08)
[2022-06-21] MEDS ORDERED: ONDANSETRON *ODT* 4 MG TABLET SL PRN (18:08)
[2022-06-21] MEDS ORDERED: MAGNESIUM HYDROX 2400MG/30ML ORAL SUSPENSION 30 ML CUP PO PRN (18:08)
[2022-06-21] MEDS ORDERED: BENZONATATE 200 MG CAPSULE PO PRN (18:08)
[2022-06-21] MEDS ORDERED: DICYCLOMINE HCL 10 MG CAPSULE PO PRN (18:08)
[2022-06-21] MEDS ORDERED: BENZOCAINE/MENTHOL (CHLORASEPTIC ) LOZENGE MM PRN (18:08)
[2022-06-21] MEDS ORDERED: NICOTINE 10 MG CARTRIDGE (INHALER) IH PRN (18:08)
[2022-06-21] MEDS ORDERED: LOPERAMIDE HCL 2 MG CAPSULE PO PRN (18:08)
[2022-06-21] MEDS ORDERED: BISMUTH SUBSALICYLATE 524 MG/30 ML PO PRN (18:08)
[2022-06-21] MEDS ORDERED: NALOXONE HCL (KLOXXADO) 8 MG SPRAY NS PRN (18:08)
[2022-06-21] MEDS ORDERED: NALOXONE HCL 0.4 MG/ML VIAL IM PRN (18:08)
[2022-06-21] MEDS ORDERED: guaiFENesin 600 MG TABLET.ER (FP) PO PRN (18:08)
[2022-06-21] MEDS ORDERED: ACETAMINOPHEN 325 MG TABLET (FP) PO PRN (18:08)
[2022-06-21] MEDS ORDERED: IBUPROFEN 400 MG TABLET (FP) PO PRN (18:08)
[2022-06-21] MEDS: METHOCARBAMOL 500 MG TABLET PO PRN (22:53)
[2022-06-21] MEDS: hydrOXYzine PAMOATE 25 MG CAPSULE (FP) PO PRN (22:53)
[2022-06-21] MEDS: MELATONIN 5 MG TABLETS PO SCH (22:53)
[2022-06-21] MEDS: THIAMINE HCL 100 MG TABLET (FP) PO SCH (22:53)
[2022-06-21] MEDS: diazePAM 5 MG TABLET PO SCH (22:54)
[2022-06-22] MEDS: diazePAM 5 MG TABLET PO SCH ×4 (06:08→23:14)
[2022-06-22] MEDS: metFORMIN HCL 500 MG TABLET (FP) PO SCH ×3 (07:00→17:49)
[2022-06-22] MEDS ORDERED: NICOTINE 14 MG/24 HOURS TOPICAL PATCH TD SCH (10:00)
[2022-06-22] MEDS: PRENATAL VITAMINS W/ FOLIC ACID TABLET (FP) PO SCH (10:32)
[2022-06-22] MEDS: amLODIPine BESYLATE 5 MG TABLET (FP) PO SCH (10:32)
[2022-06-22] MEDS: ASPIRIN COATED 81 MG TABLET.EC PO SCH (10:32)
[2022-06-22] MEDS: LISINOPRIL 5 MG TABLET PO SCH (10:33)
[2022-06-22] MEDS: INSULIN SLIDING SCALE (NOVOLOG) 1 VIAL SQ SCH ×2 (11:27→17:49)
[2022-06-22 11:46] LABS: POTASSIUM 4.6 mmol/L (3.5-5.1)
[2022-06-22 11:48] LABS: CALCIUM 8.5 mg/dL (8.5-10.1)
[2022-06-22 11:49] LABS: ALBUMIN 3.5 g/dl (3.4-5.0); BLOOD UREA NITROGEN 20.2 mg/dL (7-18)
[2022-06-22 11:52] LABS: CREATININE 0.8 mg/dL (0.55-1.3); HEMATOCRIT 37.9 % (35.4-49); HEMOGLOBIN 13.2 GM/dL (11.7-16.9); MCH 29.9 pg (25.7-33.7); MCHC 34.9 g/dl (32.0-35.9); MEAN CELL VOLUME 85.8 fl (80-96); MEAN PLT VOLUME 9.2 fl (7.5-11.1); PLATELET COUNT 208 10^3/uL (134-434); RBC 4.42 M/mm3 (4.00-5.60); RDW 13.1 % (11.9-15.9); WHITE BLOOD COUNT 4.2 K/mm3 (4.0-10.0)
[2022-06-22 11:53] LABS: TOT PROT 6.9 g/dl (6.4-8.2)
[2022-06-22 11:54] LABS: BILIRUBIN,TOTAL 0.3 mg/dL (0.2-1)
[2022-06-22] MEDS: NICOTINE POLACRILEX 4 MG GUM BUC PRN (18:46)
[2022-06-22] MEDS: hydrOXYzine PAMOATE 25 MG CAPSULE (FP) PO PRN (23:13)
[2022-06-22] MEDS: MELATONIN 5 MG TABLETS PO SCH (23:13)
[2022-06-22] MEDS: THIAMINE HCL 100 MG TABLET (FP) PO SCH (23:14)
[2022-06-22] MEDS: METHOCARBAMOL 500 MG TABLET PO PRN (23:14)
[2022-06-22] MEDS: INSULIN (LEVEMIR) 100 UNITS/ML UNITS SQ SCH (23:15)
[2022-06-23] MEDS: diazePAM 5 MG TABLET PO SCH ×3 (06:32→22:44)
[2022-06-23] MEDS: metFORMIN HCL 500 MG TABLET (FP) PO SCH ×2 (06:36→16:59)
[2022-06-23] MEDS: INSULIN SLIDING SCALE (NOVOLOG) 1 VIAL SQ SCH ×3 (06:36→16:57)
[2022-06-23] MEDS: NICOTINE POLACRILEX 4 MG GUM BUC PRN (09:11)
[2022-06-23] MEDS: LISINOPRIL 5 MG TABLET PO SCH (10:12)
[2022-06-23] MEDS: ASPIRIN COATED 81 MG TABLET.EC PO SCH (10:12)
[2022-06-23] MEDS: ESCITALOPRAM OXALATE 10 MG TABLET PO SCH (10:12)
[2022-06-23] MEDS: LURASIDONE HCL 20 MG TABLET PO SCH (10:13)
[2022-06-23] MEDS: NICOTINE 21 MG/24 HOURS TOPICAL PATCH TD SCH (10:13)
[2022-06-23] MEDS: amLODIPine BESYLATE 5 MG TABLET (FP) PO SCH (10:14)
[2022-06-23] MEDS: PRENATAL VITAMINS W/ FOLIC ACID TABLET (FP) PO SCH (10:14)
[2022-06-23] MEDS: hydrOXYzine PAMOATE 25 MG CAPSULE (FP) PO PRN (10:15)
[2022-06-23] MEDS: MELATONIN 5 MG TABLETS PO SCH (22:41)
[2022-06-23] MEDS: THIAMINE HCL 100 MG TABLET (FP) PO SCH (22:41)
[2022-06-23] MEDS: INSULIN (LEVEMIR) 100 UNITS/ML UNITS SQ SCH (22:46)
[2022-06-24] MEDS: diazePAM 5 MG TABLET PO SCH ×2 (06:06→17:34)
[2022-06-24] MEDS: metFORMIN HCL 500 MG TABLET (FP) PO SCH ×2 (06:06→17:34)
[2022-06-24] MEDS: INSULIN SLIDING SCALE (NOVOLOG) 1 VIAL SQ SCH ×3 (06:38→17:35)
[2022-06-24] MEDS: PRENATAL VITAMINS W/ FOLIC ACID TABLET (FP) PO SCH (10:22)
[2022-06-24] MEDS: ASPIRIN COATED 81 MG TABLET.EC PO SCH (10:23)
[2022-06-24] MEDS: ESCITALOPRAM OXALATE 10 MG TABLET PO SCH (10:24)
[2022-06-24] MEDS: LURASIDONE HCL 20 MG TABLET PO SCH (10:24)
[2022-06-24] MEDS: amLODIPine BESYLATE 5 MG TABLET (FP) PO SCH (10:25)
[2022-06-24] MEDS: LISINOPRIL 5 MG TABLET PO SCH (10:25)
[2022-06-24] MEDS: NICOTINE 21 MG/24 HOURS TOPICAL PATCH TD SCH (10:26)
[2022-06-24] MEDS: MAG HYDROX/AL HYDROX/SIMETH 30 ML UNIT-DOSE CUP PO PRN ×2 (10:27→22:09)
[2022-06-24] MEDS: NICOTINE POLACRILEX 4 MG GUM BUC PRN ×2 (11:59→13:43)
[2022-06-24] MEDS: INSULIN (LEVEMIR) 100 UNITS/ML UNITS SQ SCH (22:08)
[2022-06-24] MEDS: MELATONIN 5 MG TABLETS PO SCH (22:08)
[2022-06-24] MEDS: THIAMINE HCL 100 MG TABLET (FP) PO SCH (22:08)
[2022-06-25] MEDS ORDERED: INSULIN SLIDING SCALE (NOVOLOG) 1 VIAL SQ ONE (05:34)
[2022-06-25] MEDS ORDERED: diazePAM 5 MG TABLET PO ONE (06:00)
[2022-06-25] MEDS: INSULIN SLIDING SCALE (NOVOLOG) 1 VIAL SQ SCH ×3 (06:21→17:26)
[2022-06-25] MEDS: metFORMIN HCL 500 MG TABLET (FP) PO SCH ×2 (06:21→17:20)
[2022-06-25] MEDS: ESCITALOPRAM OXALATE 10 MG TABLET PO SCH (10:12)
[2022-06-25] MEDS: LURASIDONE HCL 20 MG TABLET PO SCH (10:12)
[2022-06-25] MEDS: amLODIPine BESYLATE 5 MG TABLET (FP) PO SCH (10:12)
[2022-06-25] MEDS: ASPIRIN COATED 81 MG TABLET.EC PO SCH (10:12)
[2022-06-25] MEDS: LISINOPRIL 5 MG TABLET PO SCH (10:12)
[2022-06-25] MEDS: PRENATAL VITAMINS W/ FOLIC ACID TABLET (FP) PO SCH (10:13)
[2022-06-25] MEDS: NICOTINE 21 MG/24 HOURS TOPICAL PATCH TD SCH (10:13)
[2022-06-25] MEDS: NICOTINE POLACRILEX 4 MG GUM BUC PRN ×5 (12:29→22:37)
[2022-06-25] MEDS: METHOCARBAMOL 500 MG TABLET PO PRN (17:25)
[2022-06-25] MEDS: hydrOXYzine PAMOATE 25 MG CAPSULE (FP) PO PRN (17:25)
[2022-06-25] MEDS: MELATONIN 5 MG TABLETS PO SCH (22:30)
[2022-06-25] MEDS: THIAMINE HCL 100 MG TABLET (FP) PO SCH (22:31)
[2022-06-25] MEDS: INSULIN (LEVEMIR) 100 UNITS/ML UNITS SQ SCH (22:34)
[2022-06-26] MEDS: INSULIN SLIDING SCALE (NOVOLOG) 1 VIAL SQ SCH (06:18)
[2022-06-26] MEDS: metFORMIN HCL 500 MG TABLET (FP) PO SCH (06:18)
[2022-06-26] MEDS ORDERED: INSULIN SLIDING SCALE (NOVOLOG) 1 VIAL SQ ONE (06:22)
[2022-06-26] MEDS: NICOTINE POLACRILEX 4 MG GUM BUC PRN (08:02)
[2022-06-26 08:45] VITALS: BP 136/86; PULSE 93; RESP 19; TEMP 98.1
[2022-06-26] MEDS: LISINOPRIL 5 MG TABLET PO SCH (09:57)
[2022-06-26] MEDS: amLODIPine BESYLATE 5 MG TABLET (FP) PO SCH (09:58)
[2022-06-26] MEDS: PRENATAL VITAMINS W/ FOLIC ACID TABLET (FP) PO SCH (09:59)
[2022-06-26] MEDS: NICOTINE 21 MG/24 HOURS TOPICAL PATCH TD SCH (09:59)
[2022-06-26] MEDS: ASPIRIN COATED 81 MG TABLET.EC PO SCH (09:59)
[2022-06-26] MEDS: LURASIDONE HCL 20 MG TABLET PO SCH (09:59)
[2022-06-26] MEDS: ESCITALOPRAM OXALATE 10 MG TABLET PO SCH (09:59)
== END 2022-06-26 10:55 | disposition other institution (70) | DRG 774 ==
LOC: YASAS 14:10 → Y3N 18:26
PROVIDERS: ADMIT Allergy & Immunology; ATTEND Surgery
PROC: HZ2ZZZZ Detoxification Services for Substance Abuse Treatment (ICD-10-PCS; principal; 2022-06-21)
DX: F10.230 Alcohol dependence with withdrawal, uncomplicated (principal); F14.20 Cocaine dependence, uncomplicated; F13.20 Sedative, hypnotic or anxiolytic dependence, uncomplicated; F17.210 Nicotine dependence, cigarettes, uncomplicated; F25.9 Schizoaffective disorder, unspecified; F19.24 Other psychoactive substance dependence with psychoactive substance-induced mood disorder; I10 Essential (primary) hypertension; K21.9 Gastro-esophageal reflux disease without esophagitis; E11.9 Type 2 diabetes mellitus without complications; Z79.4 Long term (current) use of insulin; Z86.19 Personal history of other infectious and parasitic diseases; Z86.59 Personal history of other mental and behavioral disorders; Z88.0 Allergy status to penicillin; Z91.199 Patient's noncompliance with other medical treatment and regimen due to unspecified reason
CPT/HCPCS: 36415; 80053; 82962; 85027; 86780; C9803-CS; U0003; U0005

== ENCOUNTER 2022-08-28 17:45 | Inpatient (IN) | payer OTHER ==
[2022-08-28 20:31] VITALS: BMI 33.9
[2022-08-28] MEDS ORDERED: IBUPROFEN 400 MG TABLET (FP) PO PRN (21:38)
[2022-08-28] MEDS ORDERED: DICYCLOMINE HCL 10 MG CAPSULE PO PRN (21:38)
[2022-08-28] MEDS ORDERED: ACETAMINOPHEN 325 MG TABLET (FP) PO PRN (21:38)
[2022-08-28] MEDS ORDERED: NICOTINE POLACRILEX 2 MG GUM BUC PRN (21:38)
[2022-08-28] MEDS ORDERED: IBUPROFEN 600 MG TABLET (FP) PO PRN (21:38)
[2022-08-28] MEDS ORDERED: BENZONATATE 200 MG CAPSULE PO PRN (21:38)
[2022-08-28] MEDS ORDERED: POLYETHYLENE GLYCOL (HEALTHYLAX) 3350 17 GM PACKET PO PRN (21:38)
[2022-08-28] MEDS ORDERED: MAG HYDROX/AL HYDROX/SIMETH 30 ML UNIT-DOSE CUP PO PRN (21:38)
[2022-08-28] MEDS ORDERED: MAGNESIUM HYDROX 2400MG/30ML ORAL SUSPENSION 30 ML CUP PO PRN (21:38)
[2022-08-28] MEDS ORDERED: BENZOCAINE/MENTHOL (CHLORASEPTIC ) LOZENGE MM PRN (21:38)
[2022-08-28] MEDS ORDERED: P-EPHED 60MG/TRIPROLIDI 2.5MG TABLET PO PRN (21:38)
[2022-08-28] MEDS ORDERED: ONDANSETRON *ODT* 4 MG TABLET SL PRN (21:38)
[2022-08-28] MEDS ORDERED: LOPERAMIDE HCL 2 MG CAPSULE PO PRN (21:38)
[2022-08-28] MEDS ORDERED: guaiFENesin 600 MG TABLET.ER (FP) PO PRN (21:38)
[2022-08-28] MEDS ORDERED: BISMUTH SUBSALICYLATE 524 MG/30 ML PO PRN (21:38)
[2022-08-28] MEDS: METHOCARBAMOL 500 MG TABLET PO PRN (23:31)
[2022-08-28] MEDS: hydrOXYzine PAMOATE 25 MG CAPSULE (FP) PO PRN (23:31)
[2022-08-28] MEDS: MELATONIN 5 MG TABLETS PO SCH (23:31)
[2022-08-28] MEDS: THIAMINE HCL 100 MG TABLET (FP) PO SCH (23:41)
[2022-08-29] MEDS: PANTOPRAZOLE 20 MG TABLET PO SCH (06:10)
[2022-08-29] MEDS: INSULIN SLIDING SCALE (NOVOLOG) 1 VIAL SQ SCH ×3 (06:11→17:27)
[2022-08-29] MEDS: ASPIRIN COATED 81 MG TABLET.EC PO SCH (09:59)
[2022-08-29] MEDS: NICOTINE 14 MG/24 HOURS TOPICAL PATCH TD SCH (09:59)
[2022-08-29] MEDS: amLODIPine BESYLATE 10 MG TABLET (FP) PO SCH (09:59)
[2022-08-29] MEDS: PRENATAL VITAMINS W/ FOLIC ACID TABLET (FP) PO SCH (10:00)
[2022-08-29] MEDS ORDERED: diazePAM 5 MG TABLET PO PRN (10:37)
[2022-08-29] MEDS: LISINOPRIL 5 MG TABLET PO SCH (11:04)
[2022-08-29] MEDS: diazePAM 5 MG TABLET PO SCH ×3 (11:04→22:08)
[2022-08-29] MEDS: METHOCARBAMOL 500 MG TABLET PO PRN ×2 (11:04→22:06)
[2022-08-29 11:19] LABS: HEMATOCRIT 41.1 % (35.4-49); HEMOGLOBIN 13.3 GM/dL (11.7-16.9); MCH 26.5 pg (25.7-33.7); MCHC 32.4 g/dl (32.0-35.9); MEAN CELL VOLUME 81.9 fl (80-96); MEAN PLT VOLUME 9.3 fl (7.5-11.1); PLATELET COUNT 213 10^3/uL (134-434); RBC 5.03 M/mm3 (4.00-5.60); RDW 14.4 % (11.9-15.9); WHITE BLOOD COUNT 3.6 K/mm3 (4.0-10.0)
[2022-08-29 11:26] LABS: POTASSIUM 3.9 mmol/L (3.5-5.1)
[2022-08-29 11:31] LABS: ALBUMIN 3.5 g/dl (3.4-5.0)
[2022-08-29 11:34] LABS: CREATININE 0.9 mg/dL (0.55-1.3)
[2022-08-29 11:35] LABS: TOT PROT 7.2 g/dl (6.4-8.2)
[2022-08-29 11:36] LABS: BILIRUBIN,TOTAL 0.5 mg/dL (0.2-1)
[2022-08-29] MEDS: NICOTINE POLACRILEX 4 MG GUM BUC PRN (15:37)
[2022-08-29] MEDS: INSULIN (LEVEMIR) 100 UNITS/ML UNITS SQ SCH (22:03)
[2022-08-29] MEDS: MELATONIN 5 MG TABLETS PO SCH (22:06)
[2022-08-29] MEDS: THIAMINE HCL 100 MG TABLET (FP) PO SCH (22:08)
[2022-08-30] MEDS: diazePAM 5 MG TABLET PO SCH ×4 (05:36→22:23)
[2022-08-30] MEDS: PANTOPRAZOLE 20 MG TABLET PO SCH (06:09)
[2022-08-30] MEDS: INSULIN SLIDING SCALE (NOVOLOG) 1 VIAL SQ SCH ×3 (06:11→17:23)
[2022-08-30] MEDS ORDERED: LURASIDONE HCL 20 MG TABLET PO SCH (08:00)
[2022-08-30] MEDS: amLODIPine BESYLATE 10 MG TABLET (FP) PO SCH (10:10)
[2022-08-30] MEDS: PRENATAL VITAMINS W/ FOLIC ACID TABLET (FP) PO SCH (10:10)
[2022-08-30] MEDS: ASPIRIN COATED 81 MG TABLET.EC PO SCH (10:10)
[2022-08-30] MEDS: LISINOPRIL 5 MG TABLET PO SCH (10:10)
[2022-08-30] MEDS: NICOTINE 14 MG/24 HOURS TOPICAL PATCH TD SCH (10:12)
[2022-08-30] MEDS: NICOTINE POLACRILEX 4 MG GUM BUC PRN ×3 (10:13→22:25)
[2022-08-30] MEDS: INSULIN (LEVEMIR) 100 UNITS/ML UNITS SQ SCH (22:21)
[2022-08-30] MEDS: MELATONIN 5 MG TABLETS PO SCH (22:23)
[2022-08-30] MEDS: THIAMINE HCL 100 MG TABLET (FP) PO SCH (22:23)
[2022-08-31] MEDS: diazePAM 5 MG TABLET PO SCH ×3 (05:45→22:03)
[2022-08-31] MEDS: PANTOPRAZOLE 20 MG TABLET PO SCH (06:12)
[2022-08-31] MEDS: INSULIN SLIDING SCALE (NOVOLOG) 1 VIAL SQ SCH ×3 (07:44→17:28)
[2022-08-31] MEDS: LURASIDONE HCL 40 MG TABLET PO SCH (07:54)
[2022-08-31] MEDS: amLODIPine BESYLATE 10 MG TABLET (FP) PO SCH (10:06)
[2022-08-31] MEDS: LISINOPRIL 5 MG TABLET PO SCH (10:06)
[2022-08-31] MEDS: ASPIRIN COATED 81 MG TABLET.EC PO SCH (10:07)
[2022-08-31] MEDS: PRENATAL VITAMINS W/ FOLIC ACID TABLET (FP) PO SCH (10:08)
[2022-08-31] MEDS: NICOTINE 14 MG/24 HOURS TOPICAL PATCH TD SCH (11:45)
[2022-08-31] MEDS: NICOTINE 21 MG/24 HOURS TOPICAL PATCH TD SCH (11:50)
[2022-08-31] MEDS: NICOTINE POLACRILEX 4 MG GUM BUC PRN ×3 (14:01→21:07)
[2022-08-31] MEDS: INSULIN (LEVEMIR) 100 UNITS/ML UNITS SQ SCH (22:00)
[2022-08-31] MEDS: THIAMINE HCL 100 MG TABLET (FP) PO SCH (22:02)
[2022-08-31] MEDS: METHOCARBAMOL 500 MG TABLET PO PRN (22:03)
[2022-08-31] MEDS: MELATONIN 5 MG TABLETS PO SCH (22:03)
[2022-08-31] MEDS: hydrOXYzine PAMOATE 25 MG CAPSULE (FP) PO PRN (22:03)
[2022-09-01] MEDS: diazePAM 5 MG TABLET PO SCH ×2 (05:55→17:21)
[2022-09-01] MEDS: INSULIN SLIDING SCALE (NOVOLOG) 1 VIAL SQ SCH ×3 (06:13→17:23)
[2022-09-01] MEDS: PANTOPRAZOLE 20 MG TABLET PO SCH (06:13)
[2022-09-01] MEDS: LURASIDONE HCL 40 MG TABLET PO SCH (07:47)
[2022-09-01] MEDS: PRENATAL VITAMINS W/ FOLIC ACID TABLET (FP) PO SCH (10:20)
[2022-09-01] MEDS: LISINOPRIL 5 MG TABLET PO SCH (10:20)
[2022-09-01] MEDS: amLODIPine BESYLATE 10 MG TABLET (FP) PO SCH (10:20)
[2022-09-01] MEDS: NICOTINE 21 MG/24 HOURS TOPICAL PATCH TD SCH (10:21)
[2022-09-01] MEDS: ASPIRIN COATED 81 MG TABLET.EC PO SCH (10:21)
[2022-09-01] MEDS: NICOTINE POLACRILEX 4 MG GUM BUC PRN (11:42)
[2022-09-01] MEDS: INSULIN (LEVEMIR) 100 UNITS/ML UNITS SQ SCH (22:11)
[2022-09-01] MEDS: hydrOXYzine PAMOATE 25 MG CAPSULE (FP) PO PRN (22:12)
[2022-09-01] MEDS: MELATONIN 5 MG TABLETS PO SCH (22:12)
[2022-09-01] MEDS: METHOCARBAMOL 500 MG TABLET PO PRN (22:12)
[2022-09-01] MEDS: THIAMINE HCL 100 MG TABLET (FP) PO SCH (22:13)
[2022-09-02] MEDS ORDERED: diazePAM 5 MG TABLET PO ONE (06:00)
[2022-09-02] MEDS: PANTOPRAZOLE 20 MG TABLET PO SCH (06:05)
[2022-09-02] MEDS: INSULIN SLIDING SCALE (NOVOLOG) 1 VIAL SQ SCH ×3 (07:36→16:41)
[2022-09-02] MEDS: LURASIDONE HCL 40 MG TABLET PO SCH (07:39)
[2022-09-02] MEDS: LISINOPRIL 5 MG TABLET PO SCH (10:23)
[2022-09-02] MEDS: amLODIPine BESYLATE 10 MG TABLET (FP) PO SCH (10:23)
[2022-09-02] MEDS: ASPIRIN COATED 81 MG TABLET.EC PO SCH (10:23)
[2022-09-02] MEDS: NICOTINE 21 MG/24 HOURS TOPICAL PATCH TD SCH ×2 (10:24→10:35)
[2022-09-02] MEDS: PRENATAL VITAMINS W/ FOLIC ACID TABLET (FP) PO SCH (10:24)
[2022-09-02] MEDS ORDERED: INSULIN SLIDING SCALE (NOVOLOG) 1 VIAL SQ ONE (12:19)
[2022-09-02] MEDS: NICOTINE POLACRILEX 4 MG GUM BUC PRN ×2 (16:43→19:51)
[2022-09-02] MEDS: INSULIN (LEVEMIR) 100 UNITS/ML UNITS SQ SCH (21:56)
[2022-09-02] MEDS: THIAMINE HCL 100 MG TABLET (FP) PO SCH (21:58)
[2022-09-02] MEDS: MELATONIN 5 MG TABLETS PO SCH (21:58)
[2022-09-02] MEDS: METHOCARBAMOL 500 MG TABLET PO PRN (21:58)
[2022-09-03] MEDS: PANTOPRAZOLE 20 MG TABLET PO SCH (06:18)
[2022-09-03] MEDS: INSULIN SLIDING SCALE (NOVOLOG) 1 VIAL SQ SCH ×3 (06:18→16:42)
[2022-09-03] MEDS: LURASIDONE HCL 40 MG TABLET PO SCH (07:09)
[2022-09-03] MEDS: PRENATAL VITAMINS W/ FOLIC ACID TABLET (FP) PO SCH (10:01)
[2022-09-03] MEDS: amLODIPine BESYLATE 10 MG TABLET (FP) PO SCH (10:01)
[2022-09-03] MEDS: LISINOPRIL 5 MG TABLET PO SCH (10:01)
[2022-09-03] MEDS: NICOTINE 21 MG/24 HOURS TOPICAL PATCH TD SCH (10:01)
[2022-09-03] MEDS: ASPIRIN COATED 81 MG TABLET.EC PO SCH (10:01)
[2022-09-03] MEDS: NICOTINE POLACRILEX 4 MG GUM BUC PRN ×5 (11:43→22:49)
[2022-09-03 20:51] VITALS: RESP 18
[2022-09-03] MEDS: INSULIN (LEVEMIR) 100 UNITS/ML UNITS SQ SCH (21:34)
[2022-09-03] MEDS: MELATONIN 5 MG TABLETS PO SCH (21:35)
[2022-09-03] MEDS: THIAMINE HCL 100 MG TABLET (FP) PO SCH (21:35)
[2022-09-04] MEDS: PANTOPRAZOLE 20 MG TABLET PO SCH (06:10)
[2022-09-04] MEDS: INSULIN SLIDING SCALE (NOVOLOG) 1 VIAL SQ SCH ×2 (06:10→13:27)
[2022-09-04] MEDS: NICOTINE POLACRILEX 4 MG GUM BUC PRN ×2 (08:30→11:08)
[2022-09-04] MEDS: LURASIDONE HCL 40 MG TABLET PO SCH (08:48)
[2022-09-04 09:07] VITALS: BP 112/72; PULSE 86; TEMP 97.1
[2022-09-04] MEDS: PRENATAL VITAMINS W/ FOLIC ACID TABLET (FP) PO SCH (10:02)
[2022-09-04] MEDS: amLODIPine BESYLATE 10 MG TABLET (FP) PO SCH (10:03)
[2022-09-04] MEDS: ASPIRIN COATED 81 MG TABLET.EC PO SCH (10:03)
[2022-09-04] MEDS: NICOTINE 21 MG/24 HOURS TOPICAL PATCH TD SCH (10:03)
[2022-09-04] MEDS: LISINOPRIL 5 MG TABLET PO SCH (10:03)
== END 2022-09-04 11:24 | disposition home or self-care (01) | DRG 774 ==
LOC: YASAS 17:45 → Y3N 22:31
PROVIDERS: ADMIT Allergy & Immunology; ATTEND Surgery
PROC: HZ2ZZZZ Detoxification Services for Substance Abuse Treatment (ICD-10-PCS; principal; 2022-08-28)
DX: F10.230 Alcohol dependence with withdrawal, uncomplicated (principal); F14.20 Cocaine dependence, uncomplicated; F15.20 Other stimulant dependence, uncomplicated; F17.210 Nicotine dependence, cigarettes, uncomplicated; F25.9 Schizoaffective disorder, unspecified; F41.9 Anxiety disorder, unspecified; F32.A Depression, unspecified; I10 Essential (primary) hypertension; K21.9 Gastro-esophageal reflux disease without esophagitis; E11.9 Type 2 diabetes mellitus without complications; Z79.4 Long term (current) use of insulin; Z56.0 Unemployment, unspecified; Z59.01 Sheltered homelessness; Z88.0 Allergy status to penicillin
CPT/HCPCS: 36415; 80053; 82962; 85027; 86780; 87635